=== PATIENT | male | born 1990 | race Caucasian/White ===

== ENCOUNTER 2020-07-31 17:17 | Emergency (ER) | payer OTHER ==
[~2020-07-31] VITALS: Ht 177.8 cm; Wt 87.0 kg
--- NOTE | 2020-07-31 18:14 | NUR ---
ALL TESTS RESULTED. PT IS UP FOR RECHECK AT THIS TIME.
--- NOTE | 2020-07-31 18:56 | NUR ---
REPORT OF PT FROM KHALIDA VELASQUEZ AND ASSUMING CARE OF PT AT THIS TIME.
[2020-07-31] MEDS ORDERED: OXYcodone/APAP 10/325MG TABLET ONE (19:41)
--- NOTE | 2020-07-31 19:50 | NUR ---
PT MEDICATED PER NOV. PT SIGNED CONTROLLED SUBSTANCE SHEET WHICH WAS PLACED WITH PT CHART. PT D/C WITH D/C SUMMARY AND SCRIPTS AND DENIES ANY OTHER NEEDS PERTAINING TO THIS VISIT. ALL QUESTIONS ANSWERED. PT AMBULATES WITH CRUTCHES TO REGISTRATION DESK WITH SPOUSE FOR SAFE D/C HOME.
[2020-07-31 19:52] VITALS: BP 147/84
[2020-07-31] MEDS ORDERED: OXYcodone/APAP 5/325MG TABLET PO ONE (20:00)
[2020-08-04] MEDS ORDERED: LORA-247 PO (14:58)
[2020-08-04] MEDS ORDERED: HYDR-3240 PO (14:58)
== END 2020-07-31 19:58 | disposition home or self-care (01) ==
LOC: ED 17:51
DX: S82.64XA Nondisplaced fracture of lateral malleolus of right fibula, initial encounter for closed fracture (principal); W22.8XXA Striking against or struck by other objects, initial encounter; Y93.89 Activity, other specified; Y92.410 Unspecified street and highway as the place of occurrence of the external cause; Y99.8 Other external cause status
CPT/HCPCS: 29515

== ENCOUNTER → 2020-08-04 | Day surgery (SDC) | payer OTHER ==
[~2020-08-04] VITALS: Ht 177.8 cm; Wt 90.0 kg
[~2020-08-04] MED LIST: ACETAMINOPHEN 325 MG TABLET ONE; ACETAMINOPHEN 325 MG TABLET PO PRN; ALBUTEROL SULFATE 2.5 MG/3 ML NPPB PRN; CEFAZOLIN 1,000 MG ONE; CHLORHEXIDINE 15 ML UDC MM ONE; DEXAMETHASONE 4 MG/ML, 1ML ONE; DIAZEPAM 5 MG/ML, 2ML IVPush PRN; FENTANYL PF 100 MCG/2ML IV PRN; FENTANYL PF 100 MCG/2ML ONE; GLYCOPYRROLATE 0.2MG/1ML, 5ML ONE; HYDR-3240 PO; HYDROmorphone 2 MG/ML, 1ML IVPush PRN; LABETALOL 5MG/ML, 20ML IV PRN; LACTATED RINGERS 1,000 ML IV SCH; LORA-247 PO; MEPERIDINE/PF 25MG/0.5ML IVPush PRN; MIDAZOLAM 1 MG/ML, 2ML ONE; NEOSTIGMINE 1 MG/ML, 10ML ONE; ONDANSETRON 2MG/ML, 2ML IVPush PRN; ONDANSETRON 2MG/ML, 2ML ONE; OXYcodone 5 MG/5 ML ORAL.SOL UDC ONE; OXYcodone 5 MG/5 ML ORAL.SOL UDC PO PRN; OXYcodone/APAP 5/325MG TABLET PO PRN; PROMETHAZINE 25 MG/ML, 1ML IM PRN; PROMETHAZINE 25 MG/ML, 1ML IV PRN; PROPOFOL 10 MG/ML, 20ML ONE; ROCURONIUM 10MG/ML,5ML ONE; SUCCINYLCHOLINE 20 MG/ML, 10ML ONE; hydrALAzine 20 MG/ML, 1ML IV PRN; morphine SULFATE 10 MG/ML, 1ML IVPush PRN
[2020-08-04 14:47] VITALS: BP 125/77
[2020-08-04 14:54] VITALS: BP 125/77
== END | disposition home or self-care (01) ==
LOC: OUT 13:55
PROVIDERS: ATTEND Orthopaedic Surgery
DX: S82.61XA Displaced fracture of lateral malleolus of right fibula, initial encounter for closed fracture (principal); G89.18 Other acute postprocedural pain; Z20.828 Contact with and (suspected) exposure to other viral communicable diseases; Z79.891 Long term (current) use of opiate analgesic; Z88.6 Allergy status to analgesic agent; X50.1XXA Overexertion from prolonged static or awkward postures, initial encounter; V87.8XXA Person injured in other specified noncollision transport accidents involving motor vehicle (traffic), initial encounter; Y93.55 Activity, bike riding; Y92.89 Other specified places as the place of occurrence of the external cause; Y99.8 Other external cause status
CPT/HCPCS: 27792; 64445; 64447; 73600; 87635; C1713; J0330; J0690; J1100; J2250; J2405; J2704; J2710; J3010; J7120; 76000